=== PATIENT | female | born 1995 | race Caucasian/White ===

== ENCOUNTER 2018-05-15 12:04 | Emergency (ER) | payer OTHER ==
[2018-05-15] MEDS ORDERED: LIDOCAINE 1% MPF 5 ML VIAL ONE (12:51)
--- NOTE | 2018-05-15 14:25 | ER ---
Nurse's Notes [facility] Name: Mary Alice Hernandez Age: 23 yrs Sex: Female : 1995 Arrival Date: 05/15/2018 Time: 12:07 Bed 17 Private MD: Oskar Toth S Diagnosis: Cutaneous abscess of right axilla Presentation: 05/15 12:37 Presenting complaint: Patient states: abscess under right axilla X 4-5 days. Transition iw of care: patient was not received from another setting of care. Onset of symptoms was May 15, 2018. Risk Assessment: Do you want to hurt yourself or someone else? Patient reports no desire to harm self or others. Initial Sepsis Screen: Does the patient meet any 2 criteria? No. Patient's initial sepsis screen is negative. Does the patient have a suspected source of infection? No. Patient's initial sepsis screen is negative. Care prior to arrival: None. 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 - Ebola Screening: : Patient negative for fever greater than or equal to 101.5 degrees Fahrenheit, and additional compatible Ebola Virus Disease symptoms Patient denies exposure to infectious person Patient denies travel to an Ebola-affected area in the 21 days before illness onset No symptoms or risks identified at this time. - Social history:: Smoking status: Patient/guardian denies using tobacco. Screenin:02 Abuse screen: Denies threats or abuse. Nutritional screening: No deficits noted. tw2 Tuberculosis screening: No symptoms or risk factors identified. Fall Risk None identified. Assessment: 13:02 General: Appears in no apparent distress. obese, well groomed, Behavior is calm, tw2 cooperative, appropriate for age. Pain: Complains of pain in right axilla. Neuro: Level of Consciousness is awake, alert, obeys commands, Oriented to person, place, time, situation. Cardiovascular: Denies chest pain, shortness of breath, Capillary refill < 3 seconds Patient's skin is warm and dry. Respiratory: Airway is patent Respiratory effort is even, unlabored, Respiratory pattern is regular, symmetrical. GI: No signs and/or symptoms were reported involving the gastrointestinal system. : No signs and/or symptoms were reported regarding the genitourinary system. EENT: No signs and/or symptoms were reported regarding the EENT system. Derm: Abscess located on right axilla. Musculoskeletal: Range of motion:. 14:05 Reassessment: Patient appears in no apparent distress at this time. No changes from tw2 previously documented assessment. Patient and/or family updated on plan of care and expected duration. Pain level reassessed. Patient is alert, oriented x 3, equal unlabored respirations, skin warm/dry/pink. 14:09 Reassessment: provider at bedside at this time. tw2 14:46 Reassessment: Patient appears in no apparent distress at this time. No changes from tw2 previously documented assessment. Patient and/or family updated on plan of care and expected duration. Pain level reassessed. Patient is alert, oriented x 3, equal unlabored respirations, skin warm/dry/pink. Patient states feeling better. Patient states symptoms have improved. Vital Signs: 12:39 BP 122 / 89; Pulse 77; Resp 16; Temp 98.2; Pulse Ox 98% on R/A; Weight 81.65 kg; Height iw 5 ft. 2 in. (157.48 cm); Pain 10/10; 14:05 BP 131 / 82; Pulse 83; Resp 17; Pulse Ox 97% on R/A; tw2 12:39 Body Mass Index 32.92 (81.65 kg, 157.48 cm) iw ED Course: 12:07 Patient arrived in ED. mr 12:07 Oskar Toth MD is Private Physician. mr 12:21 Yovani Aponte MD is Attending Physician. kdr 12:33 Millie Bach RN is Primary Nurse. tw2 12:38 Triage completed. iw 12:39 Arm band placed on. iw 13:06 Bed in low position. Call light in reach. Adult w/ patient. Pulse ox on. NIBP on. Warm tw2 blanket given. 13:06 Assist provider with I \T\ D: Set up I\T\D tray. Performed by Yovani Aponte MD. tw 2 14:24 Oskar Toth MD is Referral Physician. kdr 14:47 Patient did not have IV access during this emergency room visit. tw2 Administered Medications: 14:10 Drug: Lidocaine (1 %) 20 ml {Note: by Dr. Aponte.} Volume: 20 ml; Route: Infiltration; tw2 Outcome: 14:24 Discharge ordered by . kdr 14:46 Discharged to home ambulatory, with family. tw2 14:46 Condition: stable 14:46 Discharge instructions given to patient, family, Instructed on discharge instructions, follow up and referral plans. no drinking with medication, no driving heavy equipment, medication usage, wound care, Demonstrated understanding of instructions, follow-up care, medications, Prescriptions given X 3. 14:47 Patient left the ED. tw2 Signatures: Yovani Aponte MD MD kdr Rivera, Maria mr Williams, Irene, HARRY MCDONALD iw Millie Bach RN RN tw2
--- NOTE | 2018-05-15 14:25 | EDPHYS ---
Physician Documentation [facility] Name: Mary Alice Hernandez Age: 23 yrs Sex: Female : 1995 Arrival Date: 05/15/2018 Time: 12:07 Bed 17 Private MD: Oskar Toth S ED Physician Yovani Aponte HPI: 05/15 14:27 This 23 yrs old Female presents to ER via Ambulatory with complaints of kdr Abscess. 14:27 The patient presents with an abscess of the right axilla, the patient presents with a kdr swollen area of the . Description: The affected area is small, approximately 1.5 cm(s), confluent, localized, fluctuant, swollen, tense. Onset: The symptoms/episode began/occurred gradually, 4 day(s) ago. Possible cause(s): unknown. Associated signs and symptoms: The patient has no apparent associated signs or symptoms. Modifying factors: the symptoms are alleviated by nothing, the symptoms are aggravated by pressure, touching. Severity of symptoms: At their worst the symptoms were mild, in the emergency department the symptoms are unchanged. The patient has experienced similar episodes in the past, a few times. The patient has not recently seen a physician. 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 - Ebola Screening: : Patient negative for fever greater than or equal to 101.5 degrees Fahrenheit, and additional compatible Ebola Virus Disease symptoms Patient denies exposure to infectious person Patient denies travel to an Ebola-affected area in the 21 days before illness onset No symptoms or risks identified at this time. - Social history:: Smoking status: Patient/guardian denies using tobacco. ROS: 14:27 Constitutional: Negative for fever, chills, and weight loss, Eyes: Negative for injury, kdr pain, redness, and discharge, Neck: Negative for injury, pain, and swelling. 14:27 Skin: Positive for abscess, of the right axilla. Exam: 14:27 Constitutional: This is a well developed, well nourished patient who is awake, alert, kdr and in no acute distress. Head/Face: Normocephalic, atraumatic. Eyes: Pupils equal round and reactive to light, extra-ocular motions intact. Lids and lashes normal. Conjunctiva and sclera are non-icteric and not injected. Cornea within normal limits. Periorbital areas with no swelling, redness, or edema. Neck: Trachea midline, no thyromegaly or masses palpated, and no cervical lymphadenopathy. Supple, full range of motion without nuchal rigidity, or vertebral point tenderness. No Meningismus. Cardiovascular: Regular rate and rhythm with a normal S1 and S2. No gallops, murmurs, or rubs. Normal PMI, no JVD. No pulse deficits. Respiratory: Lungs have equal breath sounds bilaterally, clear to auscultation and percussion. No rales, rhonchi or wheezes noted. No increased work of breathing, no retractions or nasal flaring. Abdomen/GI: Soft, non-tender, with normal bowel sounds. No distension or tympany. No guarding or rebound. No evidence of tenderness throughout. Back: No spinal tenderness. No costovertebral tenderness. Full range of motion. 14:27 Chest/axilla: Inspection: cellulitis, that is mild, Palpation: tenderness, that is mild, of the right lateral posterior chest. Vital Signs: 12:39 BP 122 / 89; Pulse 77; Resp 16; Temp 98.2; Pulse Ox 98% on R/A; Weight 81.65 kg; Height iw 5 ft. 2 in. (157.48 cm); Pain 10/10; 14:05 BP 131 / 82; Pulse 83; Resp 17; Pulse Ox 97% on R/A; tw2 12:39 Body Mass Index 32.92 (81.65 kg, 157.48 cm) iw Procedures: 14:27 I \T\ D: Incision and drainage was performed for an abscess of the right axilla. Prepped kdr with Hibiclens. Anesthetized with 5 ml's 1% Lidocaine. Incised with #11 blade. Drained moderate amount purulent fluid. serosanguinous fluid. Loculations removed. Abscess cavity explored. Packed with iodoform gauze, Dressing: sterile 4x4 gauze, non-Adherent dressing, the patient tolerated the procedure well. MDM: 14:24 Patient medically screened. kdr 14:27 Data reviewed: vital signs, nurses notes. Counseling: I had a detailed discussion with kdr the patient and/or guardian regarding: the historical points, exam findings, and any diagnostic results supporting the discharge/admit diagnosis, the need for outpatient follow up. 05/15 12:44 Order name: I\T\D Setup; Complete Time: 12:53 tw2 Administered Medications: 14:10 Drug: Lidocaine (1 %) 20 ml {Note: by Dr. Aponte.} Volume: 20 ml; Route: Infiltration; tw2 Disposition: 05/15/18 14:24 Discharged to Home. Impression: Cutaneous abscess of right axilla. - Condition is Stable. - Discharge Instructions: Incision and Drainage, Skin Abscess, [id number]-op-Mjlc, Incision and Drainage, Care After. - Prescriptions for Clindamycin HCl 300 mg Oral Capsule - take 1 capsule by ORAL route every 6 hours for 10 days; 40 capsule. Tramadol 50 mg Oral Tablet - take 1 tablet by ORAL route every 8 hours as needed; 12 tablet. Bactrim DS 800- 160 mg Oral Tablet - take 1 tablet by ORAL route every 12 hours for 10 days; 20 tablet. - Medication Reconciliation Form, Thank You Letter, Antibiotic Education form. - Follow up: Oskar Toth MD; When: 2 - 3 days; Reason: If symptoms return, Further diagnostic work-up, Recheck today's complaints, Continuance of care, Re-evaluation by your physician. - Problem is new. - Symptoms have improved. Signatures: Yovani Aponte MD MD kdr Keisha Fields, HARRY RN iw Millie Bach RN RN tw2 Corrections: (The following items were deleted from the chart) 14:47 14:24 05/15/2018 14:24 Discharged to Home. Impression: Cutaneous abscess of right tw2 axilla. Condition is Stable. Forms are Medication Reconciliation Form, Thank You Letter, Antibiotic Education, Prescription Opioid Use. Follow up: Oskar Toth; When: 2 - 3 days; Reason: If symptoms return, Further diagnostic work-up, Recheck today's complaints, Continuance of care, Re-evaluation by your physician. Problem is new. Symptoms have improved. kdr
== END 2018-05-15 14:47 | disposition home or self-care (01) ==
LOC: ER 12:04
PROC: 0J9D0ZZ Drainage of Right Upper Arm Subcutaneous Tissue and Fascia, Open Approach (ICD-10-PCS; principal; 2018-05-15)
DX: L02.411 Cutaneous abscess of right axilla (principal); Z88.1 Allergy status to other antibiotic agents; Z88.5 Allergy status to narcotic agent; Z91.048 Other nonmedicinal substance allergy status
CPT/HCPCS: 99284

== ENCOUNTER 2020-07-28 09:26 | Inpatient (IN) | payer OTHER ==
--- OUTSIDE RECORDS SUMMARY | 2020-07-28 10:46 | XMS REPORT | Continuity of Care Document ---
:1995 Author Organization [facility] t Address [address] [place] [address] Dr. Pena [address] [place] [id number] Care Team Providers Name Role Phone Unavailable Unavailable Unavailable Problems This patient has no known problems. Allergies, Adverse Reactions, Alerts This patient has no known allergies or adverse reactions. Medications This patient has no known medications. Procedures This patient has no known procedures. Results This patient has no known results.
[2020-07-28 11:07] LABS: Urine Appearance CLEAR; Urine Bilirubin NEGATIVE (NEG); Urine Blood NEGATIVE (NEG); Urine Color YELLOW; Urine Glucose NEGATIVE (NEG); Urine Protein 1+ (NEG); Urine Specific Gravity 1.025 (1.005-1.030); Urine Urobilinogen 0.2 mg/dL (0.2-1.0); Urine pH 6.5 (5.0-7.0)
[2020-07-28 11:40] LABS: Urine Bacteria <20 /HPF (<20)
[2020-07-28 11:41] LABS: Urine Culture Reflex Order NOT NEEDED
--- NOTE | 2020-07-28 12:10 | CON ---
A 25-year-old primigravida, 37 weeks DICTATION ENDS HERE PARISH/CHAPIS Voice ID: [id number] Report ID: [id number]
[2020-07-28] MEDS ORDERED: PROMETHAZINE INJ 25 MG/ML AMP IM PRN (12:14)
[2020-07-28] MEDS ORDERED: CARBOPROST TROME 250 MCG/ML IM PRN (12:14)
[2020-07-28] MEDS ORDERED: Ringers Lactate 1,000 ML IV PRN (12:14)
[2020-07-28] MEDS ORDERED: METHYLERGONOVINE 0.2MG/ML AMP IM PRN (12:14)
[2020-07-28] MEDS ORDERED: BUTORPHANOL 1 MG/ML INJ IV PRN (12:14)
[2020-07-28] MEDS ORDERED: miSOPROStoL 100 MCG TAB ONE (12:22)
[2020-07-28] MEDS ORDERED: Ringers Lactate 1,000 ML IV SCH (13:00)
[2020-07-28] MEDS ORDERED: OXYTOCIN/LR 20 UNIT/1,000 ML BAG IV SCH (13:00)
[2020-07-28 13:12] LABS: Absolute Lymphocytes (CBC) 2.4 K/uL (0.7-4.9); Basophils % 0.2 % (0-1.3); Lymphocytes % 22.6 % (15.3-44.8); MPV 10.9 fL (7.6-11.3); RBC Red Blood Cell Count 4.55 M/uL (3.86-4.86)
[2020-07-28 14:11] VITALS: BMI 40.2
[2020-07-28] MEDS ORDERED: miSOPROStoL 100 MCG TAB VAG SCH (21:00)
[2020-07-29] MEDS ORDERED: MAGNESIUM SULF/STERILE WATER 1,000 ML IV SCH (08:00)
[2020-07-29] MEDS ORDERED: FENTANYL CITR 100 MCG/2 ML IV ONE (08:22)
[2020-07-29] MEDS ORDERED: FENTANYL/BUPIVACAINE/NS/PF 200 MCG/100 ML BAG EP PRN (08:23)
[2020-07-29] MEDS ORDERED: BUPIVACAINE 0.25% PF 10 ML VIAL IV PRN (08:23)
[2020-07-29] MEDS ORDERED: Ringers Lactate 2,000 ML IV ONE (09:21)
--- NOTE | 2020-07-29 10:32 | PREOPHP ---
Date of Admission: 07/28/2020 History Of Present Illness: A 25-year-old primigravida, 37 weeks 2 days, seen in conjunction with Dr Monika Hubbard, high-it risk advisor, [facility], for insulin-dependent diabetes. Nia reddy has developed preeclampsia and on Dr. Hubbard's suggestion we will deliver at this point. Cytotec 5 0 mcg inserted and we will insert every 6 hours x3 and then begin Pitocin. Cervix is very unfavorabl e, 1 cm or less. Baby is vertex, but floating. This is discussed with the patient and the c jose for is fairly high. Other risks and complications of delivery discussed. Family History: Maternal grandmother with hypertension. Paternal grandfather with heart attack. Di kaleb runs on the paternal side of the family. A paternal aunt had cervical cancer. Allergies: THE PATIENT IS ALLERGIC TO LIDOCAINE, CODEINE, AND CECLOR WELL APPARENTLY BETADINE. Social History: She does not smoke. Physical Examination: HEENT: Clear. Pupils equal, round, reactive to light and accommodation. Conjunctivae well perfused . No oral, lingual, or buccal lesions. Chest and Lungs: Clear. Heart: Without murmurs, thrills, heaves, or rubs. Breasts: Not examined. Abdomen: Term size. Extremities: Clear with +1 edema. : Cervix is fingertip with the baby vertex, will admit for stabilization and delivery. Patient knows that when she gets into an active labor, we will probably begin magnesium sulfate. PARISH/CHAPIS Voice ID: [id number]
--- NOTE | 2020-07-29 11:13 | PN ---
Spontaneous rupture of membranes last night. The patient had clear fluid. The patient is contractin g regularly. Has progressed to 1.5 cm, 50% effaced, vertex, now -1 station well applied. She has golden d 1 mg of Stadol, 25 mg of Phenergan IM. Discussion with the patient and family this morning. She k nows she is just in early phase of labor. Once she gets to 4-5 cm, she would progress more rapidly, but she knows it is unpredictable how long it will take to get to that point. Pros and cons of epidu ral were discussed. She knows she can have the epidural at any time she requests. Blood pressures h ave been very labile, some as low as 112 systolic others 150. We have already discussed the possibil ity of starting magnesium sulfate and probably, we will do that here in the next few hours. The gracie ent knows that now that the membrane is ruptured, we need to get the baby delivered probably within 2 4 hours or less, although she knows this is arbitrary. She is doing her breathing techniques quite w ell at this point. PARISH/MODL Voice ID: [id number] Report ID: [id number]
--- NOTE | 2020-07-29 12:52 | PN ---
The patient is 2.5, possibly 3. Still the same station -1. Fluid is clear. Baby looks better now. The Stadol given earlier is starting to wear off and baby has more variability. Blood pressures hav e actually improved. So, at this point, we have not started on magnesium sulfate. She has her epidu ral now and is much more comfortable. We will see what kind of progress she makes during the next 2 to 3 hours. Full discussion with patient and family. PARISH/CHAPIS Voice ID: [id number] Report ID: [id number]
--- NOTE | 2020-07-29 15:35 | PN ---
The patient is now 5 cm. She is extremely numb. We will cut the epidural back from 10 to 8. We brenda l put her on a scalp electrode. We are only at 12 milliunits. I think with stronger contractions, s he will start making more rapid progress. PARISH/CHAPIS Voice ID: [id number] Report ID: [id number]
[2020-07-29] MEDS ORDERED: METOCLOPRAMIDE 10 MG/2mL INJ ONE (17:15)
[2020-07-29] MEDS ORDERED: FAMOTIDINE 20 MG/2 ML VIAL IV ONE (17:16)
[2020-07-29] MEDS ORDERED: NA CIT/CITRIC AC 30 ML ORAL UDC ONE (17:17)
[2020-07-29] MEDS ORDERED: CEFAZOLIN/SWI 2gm 2 GM/20 ML SYR ONE (17:17)
[2020-07-29] MEDS ORDERED: LIDOCAINE 2% W/EPI 1:200,000 MPF 20 ML VIAL IM ONE (17:32)
[2020-07-29] MEDS ORDERED: OXYTOCIN 10 UNIT/ML ML IV ONE (17:33)
[2020-07-29] MEDS ORDERED: MORPHINE SULFATE/PF 1 MG/ML (10 ML AMP) ONE (17:47)
[2020-07-29] MEDS ORDERED: KETOROLAC 30 MG/ML INJ IM PRN (18:20)
[2020-07-29] MEDS ORDERED: ACETAMINOPHEN 500 MG TAB PO PRN ×2 (18:20)
[2020-07-29] MEDS ORDERED: DIPHENHYDRAMINE 25 MG TAB/CAP PO PRN (18:20)
[2020-07-29] MEDS ORDERED: BISACODYL 10 MG RECTAL SUPP PR PRN (18:20)
[2020-07-29] MEDS ORDERED: ONDANSETRON 4 MG (ODT) TAB PO PRN (18:20)
[2020-07-29] MEDS ORDERED: CEFAZOLIN 1GM (PREMIX IV) 50 ML IV ONE (18:20)
[2020-07-29] MEDS ORDERED: Oxycodone HCl/Acetaminophen 1 TAB TAB PO PRN ×2 (18:20)
[2020-07-29] MEDS ORDERED: ONDANSETRON 4 MG/2 ML VIAL IV PRN (18:20)
[2020-07-29] MEDS ORDERED: TRAMADOL HCL 50 MG TAB PO PRN (18:37)
[2020-07-29] MEDS ORDERED: OXYTOCIN/LR 20 UNITS/1,000 ML BAG IV SCH (19:00)
[2020-07-29] MEDS ORDERED: D5LR 1,000 ML with OXYTOCIN 20 UNIT IV SCH ×2 (19:00)
--- NOTE | 2020-07-29 19:35 | OP ---
Surgeon: Zaheer Hernandez MD Audiology Director: Nakul Ott M.D,, research study assistant surgeon. Rhiannon Yuen M.D. for Pediatrics. Indications: This is a 25-year-old primigravida at 37 weeks and 2 days, had Cytotec inserted. Exper ienced spontaneous rupture of membranes last night, was started on Pitocin at approximately midnight. During the labor, requested and received Stadol IV, 25 mg of Phenergan IM at 3 cm, requested and re ceived epidural anesthesia. The patient ultimately progressed about 6.5 to 7 cm and then did not tanya w any dramatic dilation. heart tones went to the 180 range, decreased hhqm-ra-leax variability and subtle late decelerations noted, changed position, IV hydration, oxygen resulted, no benefit. I t was decided to proceed with section. Infection; blood loss; anesthetic complications; inj ury to bladder, bowel, ureter; postoperative complications; clots in legs, pneumonia discussed. The patient knows very well this does not constitute all the possible problems that could occur during or following surgery. Description Of Procedure: After adequate prepping and draping, time-out was performed. Then a Pfann enstiel incision was created. Incision was carried to the fascia. Fascia was incised and incision c arried transversely bilaterally with Pack scissors. Anterior and posterior fascial planes were devel oped with both blunt, sharp dissection. Underlying rectus muscle . Peritoneum entered. Lo w transverse bladder flap developed. Low transverse uterine incision created. An 8 pounds 1 ounce m vicki infant was delivered, Apgars 8 and 9. Cord blood specimen obtained, placenta removed manually. Uterus cleared of clot and blood and exteriorized. Uterus closed with a running lock stitch of 1 chr omic followed by imbricating stitch of 1 chromic. Estimated blood loss 800 cc. Gutters cleared of c lot and blood, uterus replaced in the peritoneal cavity. Inspection of the suture line showed no fur ther bleeding. Rectus muscles were reapproximated using 2 sutures of 1 Vicryl. Then the fascia was closed with running from either angle to the midline with 1 PDS. Subcutaneous tissue was closed with 2-0 plain and then samantha used for the skin. The patient has been given 2 g of Ancef for prophylax is. Tolerated all procedures well. Transferred back to her room in good condition. Final Diagnoses: Term intrauterine at 37 weeks 2 days with Cytotec insertion, 37 weeks 3 d ays with for non-reassuring heart tones. Epidural anesthesia. Insulin-dependent luz betic. Preeclampsia-mild. NBC/MODL Voice ID: [id number] Report ID: [id number]
[2020-07-30 00:46] LABS: RPR (Rapid Plasma Reagin) NON-REACT (NON-REACT)
[2020-07-30] MEDS ORDERED: CEFAZOLIN 2 GM in NA CHLORIDE 0.9% 100 ML IVPB ONE (01:00)
[2020-07-30] MEDS ORDERED: CEFAZOLIN/SWI 2gm 2 GM/20 ML SYR IVP ONE (01:45)
[2020-07-30] MEDS ORDERED: CEFAZOLIN/SWI 1gm 1 GM/10 ML SYR IV ONE (02:00)
--- NOTE | 2020-07-30 11:51 | PN ---
Subjective: The patient is doing quite well since surgery. H and H with minimal change. Lochia is normal. She spiked a fever right after the surgery, but she was shaking dramatically. Temperatures are now normal. The patient is ambulating. Output has been excellent. Blood pressures have gotten even better. Last blood pressure was obtained in the 120s over 60 range. The patient has no complai nts this morning. Last blood sugar was 140. The patient was on Levemir during the and if she stayed with the dose she was last on, I think that would be too much. She will call Dr. Stevie ayala and get any advice about what to do about her insulin requirements. If she cannot contact him, we will get the hospital information security officer to take a look. Right now though the 140 I think is quite accepta ble range. Full postop talk. She will return to the office on Friday for staple removal. She is not taking any analgesics thus far, but soon or later of course the epidural analgesia will wear off and she will start taking medications. We will progress her diet this morning. Discontinue the IV. Discontinue River catheter later today. She knows to watch her bladder retention. If she continue s her good progress, we will let her go home tomorrow somewhere between midday and early afternoon. Baby is doing quite well. The patient has had her Tdap shot and her flu shot. PARISH/CHAPIS Voice ID: [id number] Report ID: [id number]
[2020-07-30] MEDS ORDERED: Ringers Lactate 3,000 ML IV ONE (14:33)
[2020-07-30] MEDS ORDERED: MAGNESIUM HYDROXIDE 8% 30 ML PO PRN (18:20)
[2020-07-30] MEDS: IBUPROFEN 600 MG TAB PO PRN (19:41)
[2020-07-31] MEDS: IBUPROFEN 600 MG TAB PO PRN ×2 (02:40→09:19)
--- NOTE | 2020-07-31 08:31 | DS ---
Mary Alice Velazquez is a 25-year-old primigravida, 37 weeks 3 days, seen in consultation with Dr. Hubbard, high-it risk and assurance manager. The patient noted to have insulin-dependent diabetes, began show signs of mild preeclampsia and under advice from Dr. Hubbard, delivery was performed. Cytotec was inserted the day prior to delivery. The patient went to an active labor. Stadol initially during the labor followed by epidural anesthesia. The patient achieved about 6-6.5 cm, did not progress very well after that and then began to show nonreassuring heart tones. section was performed with delivery of an 8 pounds 1 ounce male , Apgars 8 and 9, Dr. Yuen in pediatric attendance. Epidural anesthesia was employed as it was working quite well. Estimated blood loss 800 cc. Ancef was given pre and postoperatively for prophylaxis. Blood pressures have still been labile, but none high than about 140 systolic. Her output has been good. She is ambulating. She has eaten. She is passing ga s. Her blood sugars are in the normal range. She is now taking half the dose that she normally take s during her on advice of Dr. Hubbard, high-it risk and assurance manager. She will be seen in my office Friday this week for staple removal. She is to report any temperature elevation of 100 degrees or greater, severe pain, heavy bleeding, or any other type of abnormalities. She will be taking Motrin for analgesia, does not request any other analgesics. She has had her Tdap and flu shot. She has h ad no post epidural problems. Seems to be doing quite well. Final Diagnoses: Intrauterine gestation at 37 weeks 2 days, Cytotec for cervical ripening at 37 week s 3 days, primary section for nonreassuring heart tones, epidural anesthesia. NBC/MODL Voice ID: [id number] Report ID: [id number]
--- NOTE | 2020-07-31 10:19 | CON ---
History Of Present Illness: A 25-year-old primigravida, 37 weeks 2 days, followed antepartum along jami Jin, high-risk professional, [facility] for diabetes. The patient is on in sulin. The patient is also starting to develop preeclampsia. She has +1 edema. Normal reflexes. N o SUPERVISOR LAMP SHADES symptoms. Blood pressures vary from normal 129/72 to 141/84. She has +1 protein in the urine on catheterized specimen. Her cervix is unfavorable fingertip. Baby is vertex, but we have discusse d options including Cytotec tonight and induce tomorrow, section later today or wait till Mo with bed rest and salt restriction at home and reassess her here in Labor and Delivery on Friday . When asked what my preference would be, I have suggested we probably go with a Cytotec induction. She knows with an unfavorable cervix. She has high risk for having but unless we go with a trial of labor, she has no way to know whether she would be successful with delivery vaginally. She and her will confer and let us know what their wishes are within the next few minutes. PARISH/CHAPIS Voice ID: [id number] Report ID: [id number]
--- NOTE | 2020-07-31 10:28 | PREOPHP ---
Date of Admission: 07/28/2020 History Of Present Illness: A 25-year-old primigravida 37 weeks 2 days, insulin-dependent diabetic, seen in consultation with Dr. Hubbard, [facility], [facility]. The patien t just recently started having signs of preeclampsia with mildly elevated blood pressures, +1 edema, protein in the urine now. Has no BAKER CHEF symptoms. Dr. Hubbard though has recommended that we deliver at this time. Her diabetes management has been reasonably good, although she just had to reduce the in sulin dose because her blood sugars were getting too low. Started the with a hemoglobin A1 c of 7.2. Family History: Maternal grandmother with hypertension, paternal grandfather with heart attack. Verenice dillon runs on the paternal side of the family. Paternal aunt had cervical cancer. Allergies: THE PATIENT IS ALLERGIC TO IODINE, CODEINE AND CECLOR. Medications: Has been on insulin morning and evening for some time now. Social History: She does not smoke. Physical Examination: HEENT: Clear. Pupils equal, round, reactive to light and accommodation. Conjunctivae well perfused . No oral, lingual, or buccal lesions. Chest and Lungs: Clear. Heart: Without murmurs, thrills, heaves, or rubs on previous visits. TEAM LEAD: The patient is 1 cm, 40% effaced, vertex, still floating. FHTs are normal reactive. Cytotec 5 0 mcg inserted. We will insert 50 mcg every 6 hours for 3 total doses and then start our Pitocin rou leonel. Full discussion with patient, . Other options discussed including section or expecta nt management until Friday and then reassessment but with the onset of preeclampsia at this point, Dr. Hubbard has suggested delivery and I think that is reasonable and so does the family. KATIC/MODL Voice ID: [id number]
[2020-07-31 14:38] VITALS: BP 126/73; TEMP 97.5
[2020-08-01 02:53] LABS: HBsAG Nonreactive (Nonreactive)
== END 2020-07-31 15:00 | disposition home or self-care (01) | DRG 787 ==
LOC: L&D 09:26 → 2ND-WC 11:56
PROVIDERS: ADMIT Specialist; ATTEND Specialist
PROC: 10907ZC Drainage of Amniotic Fluid, Therapeutic from Products of Conception, Via Natural or Artificial Opening (ICD-10-PCS; 2020-07-29)
PROC: 3E0P7VZ Introduction of Hormone into Female Reproductive, Via Natural or Artificial Opening (ICD-10-PCS; 2020-07-29)
PROC: 10907ZC Drainage of Amniotic Fluid, Therapeutic from Products of Conception, Via Natural or Artificial Opening (ICD-10-PCS; 2020-07-29)
PROC: 10D00Z1 Extraction of Products of Conception, Low, Open Approach (ICD-10-PCS; principal; 2020-07-29 17:00)
DX: O24.12 Pre-existing type 2 diabetes mellitus, in childbirth (principal); O86.4 Pyrexia of unknown origin following delivery; O14.04 Mild to moderate pre-eclampsia, complicating childbirth; O76 Abnormality in fetal heart rate and rhythm complicating labor and delivery; E11.9 Type 2 diabetes mellitus without complications; Z3A.37 37 weeks gestation of pregnancy; Z37.0 Single live birth; Z88.1 Allergy status to other antibiotic agents; Z88.5 Allergy status to narcotic agent; Z91.09 Other allergy status, other than to drugs and biological substances; Z79.4 Long term (current) use of insulin; Z88.4 Allergy status to anesthetic agent; Z20.828 Contact with and (suspected) exposure to other viral communicable diseases
CPT/HCPCS: 36415; 80048; 80076; 81001; 84550; 85014; 85025; 85610; 85730; 86592; 86901; 87340; 88307; 99218; J0595; J0690; J2550; J2590; J2765; J3010; J7120; J7121; U0003